=== PATIENT | female | born 1990 | race Caucasian/White ===

== ENCOUNTER 2024-05-23 19:42 | Emergency (ER) | payer MEDICAID ==
[~2024-05-23] VITALS: Ht 160 cm; Wt 79.0 kg
[2024-05-23 20:00] VITALS: O2SAT 98
[2024-05-23 20:12] VITALS: TEMP 98.5; O2SAT 99
[2024-05-23 20:36] LABS: BASOPHILS % 0.6 % (0.0-2.0); EOSINOPHILS % 1.2 % (0.0-5.0); HEMATOCRIT. 41.8 % (36.0-48.0); HEMOGLOBIN. 14.1 g/dL (12.0-16.0); LYMPHOCYTES % 44.5 % (20.0-50.0); MEAN CORPUSCULAR HEMOGLOBIN 29.6 pg (28.0-32.0); MEAN CORPUSCULAR HGB CONC 33.8 g/dL (31.0-37.0); MEAN CORPUSCULAR VOLUME 87.7 fL (81.0-99.0); MONOCYTES % 6.3 % (2.0-8.0); NEUTROPHILS % 47.4 % (40.0-76.0); PLATELET 295 x1000/uL (130-400); RED BLOOD CELL COUNT 4.76 mill/uL (4.2-5.4); RED CELL DISTRIBUTION WIDTH 13.5 % (11.6-14.6); WHITE BLOOD COUNT 7.4 x1000/uL (4.5-11.0)
[2024-05-23 20:43] LABS: CHLORIDE 109 mEq/L (98-107); POTASSIUM 3.9 mEq/L (3.5-5.1); SODIUM 141 mEq/L (136-145)
[2024-05-23 20:44] LABS: CALCIUM 9.4 mg/dL (8.7-10.4); CARBON DIOXIDE 25 mEq/L (21-32)
[2024-05-23 20:49] LABS: CREATININE 0.9 mg/dL (0.6-1.0); GLUCOSE 102 mg/dL (70-105); UREA NITROGEN BLOOD 11 mg/dL (9-23)
[2024-05-23] MEDS ORDERED: DIPHENHYDRAMINE 50MG CAPSULE PO ONE (21:15)
[2024-05-23 21:20] LABS: CLARITY URINE CLEAR (CLEAR); COLOR URINE YELLOW (YELLOW); GLUCOSE URINE NEGATIVE (NEGATIVE); KETONES URINE NEGATIVE (NEGATIVE); LEUKOCYTE ESTERASE URINE NEGATIVE (NEGATIVE); NITRITE URINE NEGATIVE (NEGATIVE); OCCULT BLOOD URINE 1+ (NEGATIVE); PROTEIN URINE NEGATIVE (NEGATIVE); SPECIFIC GRAVITY URINE 1.012 (1.005-1.030); UROBILINOGEN URINE 0.2 E.U./dL (0.2-1.0)
[2024-05-23 21:39] VITALS: BP 131/85; PULSE 61; RESP 18
[2024-05-23] MEDS: METOCLOPRAMIDE HCL 10MG TABLET PO ONE (21:39)
[2024-05-23] MEDS: DIPHENHYDRAMINE 25MG CAPSULE PO NR (21:39)
[2024-05-23] MEDS: KETOROLAC 30MG/ML VIAL IM ONE (21:39)
[2024-05-23 21:44] LABS: BACTERIA URINE NONE SEEN; SQUAMOUS EPITHELIAL CELL URINE RARE /lpf (RARE/1+); WBC URINE NONE SEEN /hpf (0-2)
[2024-05-23] MEDS ORDERED: ASPI-1154 PO (22:34)
== END 2024-05-23 22:30 | disposition home or self-care (01) ==
LOC: ER 19:42
DX: G43.909 Migraine, unspecified, not intractable, without status migrainosus (principal); I10 Essential (primary) hypertension
CPT/HCPCS: 80048; 81003; 81025; 85025; 36415; 96372; 99283; Q0163; J8597; J1885; Z7610 ×2

== ENCOUNTER 2024-09-23 12:33 | Emergency (ER) | payer MEDICAID ==
[~2024-09-23] VITALS: Ht 162.6 cm; Wt 69.0 kg
[~2024-09-23 12:33] MED LIST: ASPI-1154 PO
[2024-09-23 13:01] VITALS: O2SAT 100
[2024-09-23] MEDS ORDERED: METOCLOPRAMIDE 10MG/10 ML UDC PO ONE (13:45)
[2024-09-23] MEDS: KETOROLAC 30MG/ML VIAL IM ONE (14:26)
[2024-09-23 14:29] VITALS: BP 130/76; PULSE 56; RESP 16; TEMP 36.7; O2SAT 100
[2024-09-23] MEDS: METOCLOPRAMIDE 10MG/10 ML UDC PO NR (14:29)
[2024-09-23] MEDS: MECLIZINE 25MG TABLET PO ONE (14:29)
== END 2024-09-23 19:31 | disposition left against medical advice (07) ==
LOC: ER 12:33
DX: G43.909 Migraine, unspecified, not intractable, without status migrainosus (principal); I10 Essential (primary) hypertension
CPT/HCPCS: 99283; 96372; J1885; J8597 ×2

== ENCOUNTER 2025-04-06 16:33 | Emergency (ER) | payer MEDICAID ==
[~2025-04-06] VITALS: Ht 167.6 cm; Wt 70.0 kg
[2025-04-06 16:47] VITALS: TEMP 37.2; O2SAT 98
[2025-04-06] MEDS: IBUPROFEN 600MG TABLET PO ONE (19:32)
[2025-04-06] MEDS: ACETAMINOPHEN 325MG TABLET PO ONE (19:32)
[2025-04-06] MEDS: BENZONATATE 100MG CAPSULE PO ONE (20:39)
[2025-04-06] MEDS ORDERED: TUSSL MT (22:30)
[2025-04-06] MEDS ORDERED: ACET-2708 MT (22:30)
[2025-04-06] MEDS ORDERED: AZIT250T12 MT (22:30)
[2025-04-06 22:44] VITALS: BP 132/86; PULSE 76; RESP 13; O2SAT 100
[2025-04-06] MEDS ORDERED: GUAIFENESIN-DM 200MG-20MG/10ML UDC PO ONE (22:45)
[2025-04-06 22:51] LABS: INFLUENZA TYPE A Presumptive Negative (Pres. Neg.); INFLUENZA TYPE B Presumptive Negative (Pres. Neg.)
[2025-04-06 22:52] LABS: RESPIRATORY SYNCYTIAL VIRUS Not Detected (Not Detectd)
== END 2025-04-06 22:47 | disposition home or self-care (01) ==
LOC: ER 16:33
DX: B34.9 Viral infection, unspecified (principal); M79.10 Myalgia, unspecified site; Z20.822 Contact with and (suspected) exposure to COVID-19; Z79.899 Other long term (current) drug therapy
CPT/HCPCS: 71045; 87420; 87426; 87804; 99284